=== PATIENT | female | born 1945 | race Caucasian/White ===

== ENCOUNTER 2017-02-25 16:39 | Emergency (ER) | payer MEDICARE ==
[~2017-02-25] VITALS: Ht 165.1 cm; Wt 101.6 kg
[~2017-02-25 16:39] MED LIST: CARV25TA PO; CO Q60CA2 PO; DIAZ10TA PO; DOXA1 PO; LISI-366 PO; METF-324 PO; MOME17I; PRAV10 PO
[2017-02-25 16:42] VITALS: BP 183/84; PULSE 83; RESP 16; TEMP 98.5; O2SAT 96
--- NOTE | 2017-02-25 17:06 | PD ---
HPI Chief Complaint: Hypertension Time Seen by Provider: 16:48 Travel History International Travel<30 days: No Contact w/Intl Traveler<30days: No Traveled to known affect area: No History of Present Illness HPI 71yo F with PMH of HTN and NIDDM presents to the ED with c/o elevated blood pressure. Pt states it was systolic 200 this morning and she called her PMD but they only called back recently and said to call 911. States she has been having intermittent headache for a month and it is frontal and associated with nausea and photophobia. States she had similar headache a few years ago when her blood pressure was high. Denies any fever, neck pain, focal weakness or numbness, chest pain, sob, abdominal pain. PFSH Past Medical History Arthritis: Yes Blood Disorders: No Anxiety: Yes Depression: Yes Heart Rhythm Problems: No Cancer: No Cardiac Catheterization: No Cardiovascular Problems: Yes (HTN) High Cholesterol: No Congestive Heart Failure: Yes Diabetes: Yes Diminished Hearing: No Endocrine: No Gastrointestinal Disorders: Yes ( ACID REFLUX, ) Gout: Yes Genitourinary: No Hepatitis: Yes (HEPATITIS A) Hiatal Hernia: Yes Hypertension: Yes Immune Disorder: No Musculoskeletal: Yes Neurologic: No Psychiatric: Yes Reproductive: No Respiratory: Yes Immunizations Current: Yes Myocardial Infarction: No Ulcer: Yes (STOMACH, ESOPHAGEAL) ?: Not Menopausal: Yes : 1 Para: 1 Past Surgical History Abdominal Surgery: Yes Coronary Artery Bypass Graft: No Gynecologic Surgery: Yes (prolapse uterus) Hysterectomy: Yes Joint Replacement: Yes (BILAT KNEE ARTHROPLASTY) Pacemaker: No Tonsillectomy: Yes Other Surgery: Yes ( BREAST REDUCTION) Social History Alcohol Use: No Tobacco Use: No (QUIT 1983 smoked a ppd) Substance Use: No Allergies-Medications (Allergen,Severity, Reaction): Coded Allergies: Pneumococcal Vaccine (Verified Allergy, Severe, Dizziness, 02/25/17) Reported Meds & Prescriptions Reported Meds & Active Scripts Active Reported Hydrocodone-Acetaminophen 7.5-325 mg Tab 1 Tab PO Q6H PRN Diazepam 10 Mg Tab 10 Mg PO BID PRN Clobetasol Emollient Topical 0.05% Cream 1 Appl TOPICAL DIRECTED Pravastatin 40 Mg Tab 40 Mg PO DAILY Glimepiride 2 Mg Tab 2 Mg PO DAILY Take with breakfast or first main meal Metformin (Metformin HCl) 1,000 Mg Tab 1,000 Mg PO BIDPC With meals Carvedilol 25 Mg Tab 25 Mg PO BID Doxazosin (Doxazosin Mesylate) 8 Mg Tab 8 Mg PO DAILY Review of Systems Except as stated in HPI: all other systems reviewed are Neg Physical Exam Narrative GENERAL: 71yo F in mild distress. SKIN: +Psoriasis in lower extremity. HEAD: Atraumatic. Normocephalic. EYES: Pupils equal and round at 3mm bilaterally. EOMI. No scleral icterus. No injection or drainage. ENT: No nasal bleeding or discharge. Mucous membranes pink and moist. NECK: Trachea midline. No JVD. No nuchal rigidity. CARDIOVASCULAR: Regular rate and rhythm. No murmur appreciated. RESPIRATORY: No accessory muscle use. Clear to auscultation. Breath sounds equal bilaterally. GASTROINTESTINAL: Abdomen soft, non-tender, nondistended. No rebound tenderness or guarding. MUSCULOSKELETAL: No obvious deformities. No clubbing. No cyanosis. No edema. NEUROLOGICAL: Awake and alert. No obvious cranial nerve deficits. Motor grossly within normal limits. Normal speech. PSYCHIATRIC: Appropriate mood and affect; insight and judgment normal. Data Data Last Documented VS Vital Signs Date Time Temp Pulse Resp B/P Pulse Ox O2 Delivery O2 Flow Rate FiO2 02/25/17 17:32 82 18 172/70 95 Room Air 02/25/17 16:42 98.5 Orders Electrocardiogram (02/25/17 ) Complete Blood Count With Diff (02/25/17 16:59) Basic Metabolic Panel (Bmp) (02/25/17 16:59) Prothrombin Time / Inr (Pt) (02/25/17 16:59) Act Partial Throm Time (Ptt) (02/25/17 16:59) Ct Brain W/O Iv Contrast(Rout) (02/25/17 ) Hydralazine Inj (Apresoline Inj) (02/25/17 17:15) Acetaminophen (Tylenol) (02/25/17 17:45) Ketorolac Inj (Toradol Inj) (02/25/17 18:00) Ondansetron Inj (Zofran Inj) (02/25/17 18:00) Labs Laboratory Tests Test 02/25/17 17:18 White Blood Count 7.9 TH/MM3 Red Blood Count 4.48 MIL/MM3 Hemoglobin 13.0 GM/DL Hematocrit 38.6 % Mean Corpuscular Volume 86.1 FL Mean Corpuscular Hemoglobin 28.9 PG Mean Corpuscular Hemoglobin 33.6 % Concent Red Cell Distribution Width 13.3 % Platelet Count 260 TH/MM3 Mean Platelet Volume 8.6 FL Neutrophils (%) (Auto) 54.8 % Lymphocytes (%) (Auto) 31.5 % Monocytes (%) (Auto) 8.9 % Eosinophils (%) (Auto) 4.2 % Basophils (%) (Auto) 0.6 % Neutrophils # (Auto) 4.4 TH/MM3 Lymphocytes # (Auto) 2.5 TH/MM3 Monocytes # (Auto) 0.7 TH/MM3 Eosinophils # (Auto) 0.3 TH/MM3 Basophils # (Auto) 0.0 TH/MM3 CBC Comment DIFF FINAL Differential Comment Prothrombin Time 10.3 SEC Prothromb Time International 0.9 RATIO Ratio Activated Partial 27.9 SEC Thromboplast Time Sodium Level 139 MEQ/L Potassium Level 3.9 MEQ/L Chloride Level 103 MEQ/L Carbon Dioxide Level 27.2 MEQ/L Anion Gap 9 MEQ/L Blood Urea Nitrogen 11 MG/DL Creatinine 0.93 MG/DL Estimat Glomerular Filtration 60 ML/MIN Rate Random Glucose 126 MG/DL Calcium Level 8.9 MG/DL MDM Medical Decision Making Medical Screen Exam Complete: Yes Emergency Medical Condition: Yes Interpretation(s) EKG: NSR 84bpm. Normal axis. Laboratory Tests Test 02/25/17 17:18 White Blood Count 7.9 TH/MM3 (4.0-11.0) Red Blood Count 4.48 MIL/MM3 (4.00-5.30) Hemoglobin 13.0 GM/DL (11.6-15.3) Hematocrit 38.6 % (35.0-46.0) Mean Corpuscular Volume 86.1 FL (80.0-100.0) Mean Corpuscular Hemoglobin 28.9 PG (27.0-34.0) Mean Corpuscular Hemoglobin 33.6 % Concent (32.0-36.0) Red Cell Distribution Width 13.3 % (11.6-17.2) Platelet Count 260 TH/MM3 (150-450) Mean Platelet Volume 8.6 FL (7.0-11.0) Neutrophils (%) (Auto) 54.8 % (16.0-70.0) Lymphocytes (%) (Auto) 31.5 % (9.0-44.0) Monocytes (%) (Auto) 8.9 % (0.0-8.0) Eosinophils (%) (Auto) 4.2 % (0.0-4.0) Basophils (%) (Auto) 0.6 % (0.0-2.0) Neutrophils # (Auto) 4.4 TH/MM3 (1.8-7.7) Lymphocytes # (Auto) 2.5 TH/MM3 (1.0-4.8) Monocytes # (Auto) 0.7 TH/MM3 (0-0.9) Eosinophils # (Auto) 0.3 TH/MM3 (0-0.4) Basophils # (Auto) 0.0 TH/MM3 (0-0.2) CBC Comment DIFF FINAL Differential Comment Prothrombin Time 10.3 SEC (9.8-11.6) Prothromb Time International 0.9 RATIO Ratio Activated Partial 27.9 SEC Thromboplast Time (24.3-30.1) Sodium Level 139 MEQ/L (136-145) Potassium Level 3.9 MEQ/L (3.5-5.1) Chloride Level 103 MEQ/L (98-107) Carbon Dioxide Level 27.2 MEQ/L (21.0-32.0) Anion Gap 9 MEQ/L (5-15) Blood Urea Nitrogen 11 MG/DL (7-18) Creatinine 0.93 MG/DL (0.50-1.00) Estimat Glomerular Filtration 60 ML/MIN (>89) Rate Random Glucose 126 MG/DL (74-106) Calcium Level 8.9 MG/DL (8.5-10.1) Last Impressions Head CT 02/25/17 0000 Signed Impressions: Service Date/Time: February 17:41 - CONCLUSION: Negative for acute process. Servando Figueroa MD FACR Differential Diagnosis Hypertensive emergency vs. ICH vs. migraine headache Narrative Course 71yo F with DM and HTN here with elevated blood pressure. Pt also has been having intermittent headache that may be associated with her elevated blood pressure. BP was 183/84 initially and repeat was 172/70 so hydralazine was not given. Will do basic labs to check for end organ damage as well as CT brain. CT brain negative. Labs reviewed, normal creatinine. Pt given zofran and toradol and reevaluated at bedside. States headache has resolved and she feels better. Return precautions given. Diagnosis Primary Impression: Elevated blood pressure reading Patient Instructions: General Instructions Departure Forms: Tests/Procedures Additional Instructions: Please follow up with your PMD in 3-7 days. Return to the ED if symptoms worsen. Med/Other Pt SpecificInfo: No Change to Meds Disposition: 01 DISCHARGE HOME Condition: Stable Patience Dunaway DO Feb 25, 2017 17:06
[2017-02-25] MEDS: hydrALAZINE HCL 20 MG/ML VIAL IV PUSH ONE ×2 (17:15→17:25)
[2017-02-25 17:28] LABS: AUTOMATED NEUTROPHIL # 4.4 TH/MM3 (1.8-7.7); BASOPHIL % 0.6 % (0.0-2.0); EOSINOPHIL # 0.3 TH/MM3 (0-0.4); EOSINOPHIL % 4.2 % (0.0-4.0); HEMATOCRIT 38.6 % (35.0-46.0); HEMO FLAGS DIFF FINAL; LYMPH % 31.5 % (9.0-44.0); LYMPHOCYTE # 2.5 TH/MM3 (1.0-4.8); MEAN CELL VOLUME 86.1 FL (80.0-100.0); MEAN CORPUSCULAR HEMOGLOBIN 28.9 PG (27.0-34.0); MEAN CORPUSCULAR HGB CONC 33.6 % (32.0-36.0); MONO % 8.9 % (0.0-8.0); NEUT % 54.8 % (16.0-70.0); PLATELET COUNT 260 TH/MM3 (150-450); RED BLOOD COUNT 4.48 MIL/MM3 (4.00-5.30); RED CELL DISTRIBUTION WIDTH 13.3 % (11.6-17.2); WHITE BLOOD COUNT 7.9 TH/MM3 (4.0-11.0)
[2017-02-25 17:32] VITALS: BP 172/70; PULSE 82; RESP 18; O2SAT 95
[2017-02-25 17:37] LABS: POTASSIUM 3.9 MEQ/L (3.5-5.1)
[2017-02-25 17:40] LABS: BICARBONATE 27.2 MEQ/L (21.0-32.0)
[2017-02-25 17:42] LABS: APTT (PATIENT) 27.9 SEC (24.3-30.1); INTERNATIONAL NORMALIZED RATIO 0.9 RATIO; PROTHROMBIN TIME - PATIENT 10.3 SEC (9.8-11.6)
[2017-02-25] MEDS ORDERED: ACETAMINOPHEN 325 MG TAB PO ONE (17:45)
--- NOTE | 2017-02-25 17:50 | RADRPT ---
EXAM DATE/TIME: 02/25/2017 17:41 [facility] COMPARISON: No previous studies available for comparison. INDICATIONS : Cephalgia. RADIATION DOSE: 59.55 CTDIvol (mGy) MEDICAL HISTORY : Hepatitis A. Congestive heart failure. Diabetes mellitus type 2.Hypertension. SURGICAL HISTORY : Hysterectomy. ENCOUNTER: Initial ACUITY: 2 days PAIN SCALE: 10/10 LOCATION: cranial TECHNIQUE: Multiple contiguous axial images were obtained of the head. Using automated exposure control and adj ustment of the mA and/or kV according to patient size, radiation dose was kept as low as reasonably a chievable to obtain optimal diagnostic quality images. DICOM format image data is available electro nically for review and comparison. FINDINGS: CEREBRUM: The ventricles are normal for age. No evidence of midline shift, mass lesion, hemorrhage or acute in farction. No extra-axial fluid collections are seen. POSTERIOR FOSSA: The cerebellum and brainstem are intact. The 4th ventricle is midline. The cerebellopontine angle i s unremarkable. EXTRACRANIAL: The visualized portion of the orbits is intact. SKULL: The calvaria is intact. No evidence of skull fracture. CONCLUSION: Negative for acute process. Servando Figueroa MD FACR on February 25, 2017 at 17:49 Board Certified Radiologist. This report was verified electronically.
[2017-02-25] MEDS ORDERED: ONDANSETRON HCL 4 MG/2 ML VIAL IV PUSH ONE (18:00)
[2017-02-25] MEDS ORDERED: KETOROLAC TROMETHAMINE 30 MG/ML (IVP) VIAL IV PUSH ONE (18:00)
[2017-02-25] MEDS ORDERED: CLOB0.0513 TOPICAL (18:24)
[2017-02-25] MEDS ORDERED: PRAV40TA2 PO (18:24)
[2017-02-25] MEDS ORDERED: CARV25TA PO (18:24)
[2017-02-25] MEDS ORDERED: DIAZ10TA PO (18:24)
[2017-02-25] MEDS ORDERED: HYDR-3580 PO (18:24)
[2017-02-25] MEDS ORDERED: METF1000 PO (18:24)
[2017-02-25] MEDS ORDERED: GLIM2TAB PO (18:24)
[2017-02-25] MEDS ORDERED: DOXA1TAB43 PO (18:24)
[2017-02-25 19:04] VITALS: BP 190/71
--- NOTE | 2017-02-26 15:36 | EKG ---
Date Performed: 02/25/2017 Time Performed: 17:08:26 PTAGE: 71 years EKG: Sinus rhythm NONSPECIFIC T-WAVE ABNORMALITY Compared to prior tracing no significant change BORDERLINE ECG SABRINA James: DATA QUALITY MAY AFFECT INTERPRETATION PREVIOUS TRACING : 08/04/2013 09.01 DOCTOR: Bertrand Booker Interpretating Date/Time 02/26/2017 15:36:17
== END 2017-02-25 19:06 | disposition home or self-care (01) ==
LOC: PHED 16:39
DX: R51 Headache (principal); I11.0 Hypertensive heart disease with heart failure; K21.9 Gastro-esophageal reflux disease without esophagitis; M10.9 Gout, unspecified; B15.9 Hepatitis A without hepatic coma; E11.9 Type 2 diabetes mellitus without complications; Z96.653 Presence of artificial knee joint, bilateral
CPT/HCPCS: 70450; 80048; 85025; 85610; 85730; 93005; 96374; 96375; 99285; J1885; J2405; J0360

== ENCOUNTER → 2017-08-23 | Outpatient (CLI) | payer MEDICARE ==
[~2017-08-23] MED LIST changes: +CLOB0.0513 TOPICAL; -CO Q60CA2 PO; -DOXA1 PO; +DOXA1TAB43 PO; +GLIM2TAB PO; +HYDR-3580 PO; -LISI-366 PO; -METF-324 PO; +METF1000 PO; -MOME17I; -PRAV10 PO; +PRAV40TA2 PO
[2017-08-23 09:58] LABS: AUTOMATED NEUTROPHIL # 3.8 TH/MM3 (1.8-7.7); BASOPHIL # 0.1 TH/MM3 (0-0.2); BASOPHIL % 0.9 % (0.0-2.0); EOSINOPHIL # 0.3 TH/MM3 (0-0.4); EOSINOPHIL % 4.4 % (0.0-4.0); HEMATOCRIT 37.7 % (35.0-46.0); LYMPH % 28.2 % (9.0-44.0); LYMPHOCYTE # 1.9 TH/MM3 (1.0-4.8); MEAN CELL VOLUME 85.8 FL (80.0-100.0); MEAN CORPUSCULAR HEMOGLOBIN 29.6 PG (27.0-34.0); MEAN CORPUSCULAR HGB CONC 34.5 % (32.0-36.0); MEAN PLATELET VOLUME 8.2 FL (7.0-11.0); MONO % 9.4 % (0.0-8.0); MONOCYTE # 0.6 TH/MM3 (0-0.9); NEUT % 57.1 % (16.0-70.0); PLATELET COUNT 273 TH/MM3 (150-450); RED BLOOD COUNT 4.39 MIL/MM3 (4.00-5.30); RED CELL DISTRIBUTION WIDTH 13.4 % (11.6-17.2); WHITE BLOOD COUNT 6.6 TH/MM3 (4.0-11.0)
[2017-08-23 10:21] LABS: ALBUMIN 3.9 GM/DL (3.4-5.0); ALT (GPT) 31 U/L (10-53); AST (GOT) 25 U/L (15-37); BICARBONATE 29.1 MEQ/L (21.0-32.0); BLOOD UREA NITROGEN 15 MG/DL (7-18); CALCIUM 8.9 MG/DL (8.5-10.1); CHLORIDE 103 MEQ/L (98-107); CHOLESTEROL 155 MG/DL (120-200); CREATININE 0.64 MG/DL (0.50-1.00); GLOMERULAR FILTRATION RATE 92 ML/MIN (>89); GLUCOSE,FASTING 141 MG/DL (74-99); SODIUM (NA) 138 MEQ/L (136-145); TRIGLYCERIDES 213 MG/DL (42-150)
[2017-08-23 10:29] LABS: ALKALINE PHOSPHATASE 95 U/L (45-117); CHOLESTEROL/ HDL RATIO 3.68 RATIO; FREE T4 1.16 NG/DL (0.76-1.46); HDL CHOLESTEROL 42.1 MG/DL (40.0-60.0); LDL CHOLESTEROL 70 MG/DL (0-99); TOTAL BILIRUBIN ADULT 0.5 MG/DL (0.2-1.0); TOTAL PROTEIN 7.1 GM/DL (6.4-8.2)
[2017-08-23 13:31] LABS: BILIRUBIN, URINE NEG (NEG); BLOOD, URINE NEG (NEG); GLUCOSE,URINE NEG (NEG); KETONE, URINE NEG (NEG); MUCUS URINE FEW /lpf (OCC); NITRITE,URINE NEG (NEG); PH, URINE 6.5 (5.0-8.5); SQUAMOUS EPITHELIAL CELL URINE <1 /hpf (0-5); URINE COLOR YELLOW (YELLW/STRAW); URINE LEUKOCYTE ESTERASE TRACE (NEG)
[2017-08-23 16:19] LABS: HEMOGLOBIN A1C 7.6 % (4.3-6.0)
== END ==
LOC: PLAB 08:07
PROVIDERS: ATTEND Family Medicine
DX: E11.9 Type 2 diabetes mellitus without complications (principal); E78.5 Hyperlipidemia, unspecified
CPT/HCPCS: 36415; 80053; 80061; 81001; 82043; 83036; 84439; 84443; 85025

== ENCOUNTER 2018-01-09 01:12 | Emergency (ER) | payer MEDICARE ==
[~2018-01-09] VITALS: Ht 165.1 cm; Wt 103.4 kg
[2018-01-09 01:17] VITALS: BP 182/81; PULSE 82; RESP 18; TEMP 97.3; O2SAT 97
[2018-01-09] MEDS ORDERED: PANT40TA3 PO (01:30)
[2018-01-09] MEDS ORDERED: SODIUM CHLORIDE 0.9% FLUSH 10 ML FLUSH IV FLUSH PRN (01:30)
[2018-01-09 01:33] VITALS: O2SAT 97
[2018-01-09 01:48] LABS: BILIRUBIN, URINE NEG (NEG); BLOOD, URINE NEG (NEG); GLUCOSE,URINE NEG (NEG); KETONE, URINE NEG (NEG); NITRITE,URINE NEG (NEG); URINE COLOR YELLOW (YELLW/STRAW); URINE LEUKOCYTE ESTERASE SMALL (NEG)
[2018-01-09 01:53] LABS: RBC, URINE 0-2 /hpf (0-3); SQUAMOUS EPITHELIAL CELL URINE 0-5 /hpf (0-5)
[2018-01-09 02:20] LABS: AUTOMATED NEUTROPHIL # 4.1 TH/MM3 (1.8-7.7); BASOPHIL % 0.4 % (0.0-2.0); EOSINOPHIL # 0.4 TH/MM3 (0-0.4); EOSINOPHIL % 5.8 % (0.0-4.0); HEMATOCRIT 39.5 % (35.0-46.0); HEMOGLOBIN 13.1 GM/DL (11.6-15.3); LYMPH % 32.8 % (9.0-44.0); LYMPHOCYTE # 2.5 TH/MM3 (1.0-4.8); MEAN CELL VOLUME 88.4 FL (80.0-100.0); MEAN CORPUSCULAR HEMOGLOBIN 29.3 PG (27.0-34.0); MEAN CORPUSCULAR HGB CONC 33.1 % (32.0-36.0); MEAN PLATELET VOLUME 8.5 FL (7.0-11.0); MONO % 7.2 % (0.0-8.0); MONOCYTE # 0.5 TH/MM3 (0-0.9); NEUT % 53.8 % (16.0-70.0); PLATELET COUNT 265 TH/MM3 (150-450); RED BLOOD COUNT 4.47 MIL/MM3 (4.00-5.30); RED CELL DISTRIBUTION WIDTH 12.8 % (11.6-17.2); WHITE BLOOD COUNT 7.5 TH/MM3 (4.0-11.0)
--- NOTE | 2018-01-09 02:23 | PD ---
HPI . Abdominal pain Chief Complaint: Abdominal Pain Time Seen by Provider: 01:24 Travel History International Travel<30 days: No Contact w/Intl Traveler<30days: No Traveled to known affect area: No History of Present Illness HPI Patient presents complaining with abdominal pain. Onset was 2 years ago. It has been worse for the past 2 hours. She complains of generalized abdominal pain which she describes as burning and rates 8/10. The burning sensation has been unrelieved by an antacid. She does not have any associated symptoms such as nausea, vomiting, diarrhea, urinary tract symptoms or fever. PFSH Past Medical History Arthritis: Yes Blood Disorders: No Anxiety: Yes Depression: Yes Heart Rhythm Problems: No Cancer: No Cardiac Catheterization: No Cardiovascular Problems: Yes (HTN) High Cholesterol: No Congestive Heart Failure: Yes Diabetes: Yes Patient Takes Glucophage: Yes Diminished Hearing: No Endocrine: No Gastrointestinal Disorders: Yes ( ACID REFLUX, ) Gout: Yes Genitourinary: No Hepatitis: Yes (HEPATITIS A) Hiatal Hernia: Yes Heparin Induced Thrombocytopen: No Hypertension: Yes Immune Disorder: No Musculoskeletal: Yes Neurologic: No Psychiatric: Yes Reproductive: No Respiratory: Yes Immunizations Current: Yes Myocardial Infarction: No Ulcer: Yes (STOMACH, ESOPHAGEAL) Tetanus Vaccination: > 5 Years Influenza Vaccination: Yes ?: Not Menopausal: Yes : 1 Para: 1 Past Surgical History Abdominal Surgery: Yes Coronary Artery Bypass Graft: No Gynecologic Surgery: Yes (prolapse uterus) Hysterectomy: Yes Joint Replacement: Yes (BILAT KNEE ARTHROPLASTY) Pacemaker: No Tonsillectomy: Yes Other Surgery: Yes ( BREAST REDUCTION) Family History Family Myocardial Infarction: No Social History Alcohol Use: No Tobacco Use: No (QUIT 1983 smoked a ppd) Substance Use: No Allergies-Medications (Allergen,Severity, Reaction): Coded Allergies: pneumococcal vaccine (Unverified Allergy, Severe, Dizziness, 01/09/18) Reported Meds & Prescriptions Reported Meds & Active Scripts Active Reported Pantoprazole (Pantoprazole Sodium) 40 Mg Tab 40 Mg PO DAILY Hydrocodone-Acetaminophen 7.5-325 mg Tab 1 Tab PO Q6H PRN Diazepam 10 Mg Tab 10 Mg PO BID PRN Clobetasol Emollient Topical 0.05% Cream 1 Appl TOPICAL DIRECTED Pravastatin 40 Mg Tab 40 Mg PO DAILY Glimepiride 2 Mg Tab 2 Mg PO DAILY Take with breakfast or first main meal Metformin (Metformin HCl) 1,000 Mg Tab 1,000 Mg PO BIDPC With meals Carvedilol 25 Mg Tab 25 Mg PO BID Doxazosin (Doxazosin Mesylate) 8 Mg Tab 8 Mg PO DAILY Review of Systems Except as stated in HPI: all other systems reviewed are Neg General / Constitutional: No: Fever, Chills Gastrointestinal: Positive: Abdominal Pain, No: Nausea, Vomiting, Diarrhea Genitourinary: No: Urgency, Frequency, Dysuria Physical Exam Narrative GENERAL: Awake and alert and in no acute distress. SKIN: warm/dry. HEAD: Normocephalic. Atraumatic. EYES: Pupils equal and round. Extraocular movements are intact. ENT: Mucous membranes pink and moist. NECK: Supple. Full range of motion without pain.. CARDIOVASCULAR: Regular rate and rhythm. Heart sounds are normal. RESPIRATORY: No accessory muscle use. Clear to auscultation. Breath sounds equal bilaterally. GASTROINTESTINAL: Abdomen soft. Nontender. Bowel sounds present. Nondistended. MUSCULOSKELETAL: No obvious deformities. Normal muscle tone. NEUROLOGICAL: Awake and alert. No obvious cranial nerve deficits. Motor grossly within normal limits. Normal speech. PSYCHIATRIC: Appropriate mood and affect; insight and judgment normal. Data Data Last Documented VS Vital Signs Date Time Temp Pulse Resp B/P (MAP) Pulse Ox O2 Delivery O2 Flow Rate FiO2 01/09/18 01:33 97 01/09/18 01:17 97.3 82 18 Orders Orders Complete Blood Count With Diff (01/09/18 01:26) Comprehensive Metabolic Panel (01/09/18 01:26) Lipase (01/09/18 01:26) Urinalysis - C+S If Indicated (01/09/18 01:26) Iv Access Insert/Monitor (01/09/18 01:26) Ecg Monitoring (01/09/18 01:26) Oximetry (01/09/18 01:26) Sodium Chloride 0.9% Flush (Ns Flush) (01/09/18 01:30) Dicyclomine Inj (Bentyl Inj) (01/09/18 02:45) Labs Laboratory Tests Test 01/09/18 01:35 01/09/18 02:10 Urine Color YELLOW Urine Turbidity CLEAR Urine pH 6.0 Urine Specific [place] 1.010 Urine Protein NEG mg/dL Urine Glucose (UA) NEG mg/dL Urine Ketones NEG mg/dL Urine Occult Blood NEG Urine Nitrite NEG Urine Bilirubin NEG Urine Urobilinogen 0.2 MG/DL Urine Leukocyte Esterase SMALL Urine RBC 0-2 /hpf Urine WBC 3-5 /hpf Urine Squamous Epithelial Cells 0-5 /hpf Urine Bacteria NONE /hpf Microscopic Urinalysis Comment CULT NOT INDICATED White Blood Count 7.5 TH/MM3 Red Blood Count 4.47 MIL/MM3 Hemoglobin 13.1 GM/DL Hematocrit 39.5 % Mean Corpuscular Volume 88.4 FL Mean Corpuscular Hemoglobin 29.3 PG Mean Corpuscular Hemoglobin Concent 33.1 % Red Cell Distribution Width 12.8 % Platelet Count 265 TH/MM3 Mean Platelet Volume 8.5 FL Neutrophils (%) (Auto) 53.8 % Lymphocytes (%) (Auto) 32.8 % Monocytes (%) (Auto) 7.2 % Eosinophils (%) (Auto) 5.8 % Basophils (%) (Auto) 0.4 % Neutrophils # (Auto) 4.1 TH/MM3 Lymphocytes # (Auto) 2.5 TH/MM3 Monocytes # (Auto) 0.5 TH/MM3 Eosinophils # (Auto) 0.4 TH/MM3 Basophils # (Auto) 0.0 TH/MM3 CBC Comment DIFF FINAL Differential Comment Blood Urea Nitrogen 9 MG/DL Creatinine 0.55 MG/DL Random Glucose 199 MG/DL Total Protein 7.2 GM/DL Albumin 3.6 GM/DL Calcium Level 8.9 MG/DL Alkaline Phosphatase 108 U/L Aspartate Amino Transf (AST/SGOT) 18 U/L Alanine Aminotransferase (ALT/SGPT) 29 U/L Total Bilirubin 0.4 MG/DL Sodium Level 139 MEQ/L Potassium Level 3.9 MEQ/L Chloride Level 105 MEQ/L Carbon Dioxide Level 24.9 MEQ/L Anion Gap 9 MEQ/L Estimat Glomerular Filtration Rate 109 ML/MIN Lipase 73 U/L [facility] Medical Decision Making Medical Screen Exam Complete: Yes Emergency Medical Condition: Yes Differential Diagnosis Differential diagnosis of abdominal pain includes but is not limited to gastritis, pancreatitis, hepatitis, gastroenteritis, constipation, urinary retention, peptic ulcer disease, diverticulitis or appendicitis Narrative Course This patient presents with a chief complaint of abdominal pain. Onset was 2 years ago. It has been worse for the last couple of hours. An abdominal pain workup is in process. Her abdominal exam is benign. CBC & BMP Diagram 01/09/18 02:10 Total Protein 7.2, Albumin 3.6, Calcium Level 8.9, Alkaline Phosphatase 108, Aspartate Amino Transf (AST/SGOT) 18, Alanine Aminotransferase (ALT/SGPT) 29, Total Bilirubin 0.4, Lipase 73 UA neg Patient reports that she has been on Protonix for 2 years and that it does not help. I will give her prescription for Carafate. She should follow-up with her doctor for ongoing evaluation and treatment of this chronic problem. Diagnosis Primary Impression: Abdominal pain Qualified Codes: R10.84 - Generalized abdominal pain Patient Instructions: Abdominal Pain (ED), General Instructions Med/Other Pt SpecificInfo: Prescription(s) given Scripts Sucralfate (Carafate) 1 Gram Tab 1 GM PO QID for Ulcer Prevention, #120 TAB 0 Refills On empty stomach Prov: Neris Montejo MD 01/09/18 Disposition: 01 DISCHARGE HOME Condition: Stable Neris Montejo MD Jan 09, 2018 02:23
[2018-01-09 02:26] LABS: CHLORIDE 105 MEQ/L (98-107); SODIUM (NA) 139 MEQ/L (136-145)
[2018-01-09 02:30] LABS: ALBUMIN 3.6 GM/DL (3.4-5.0); BICARBONATE 24.9 MEQ/L (21.0-32.0); BLOOD UREA NITROGEN 9 MG/DL (7-18); CALCIUM 8.9 MG/DL (8.5-10.1); GLUCOSE,RANDOM 199 MG/DL (74-106)
[2018-01-09 02:33] LABS: ALT (GPT) 29 U/L (10-53); AST (GOT) 18 U/L (15-37); CREATININE 0.55 MG/DL (0.50-1.00); GLOMERULAR FILTRATION RATE 109 ML/MIN (>89)
[2018-01-09 02:35] LABS: TOTAL BILIRUBIN ADULT 0.4 MG/DL (0.2-1.0); TOTAL PROTEIN 7.2 GM/DL (6.4-8.2)
[2018-01-09 02:36] LABS: ALKALINE PHOSPHATASE 108 U/L (45-117)
[2018-01-09] MEDS ORDERED: DICYCLOMINE HCL 20 MG/2 ML VIAL IM ONE (02:45)
[2018-01-09] MEDS ORDERED: CARA1TAB6 PO (02:47)
[2018-01-09 03:01] VITALS: BP 176/84; PULSE 84; RESP 18; O2SAT 97
== END 2018-01-09 03:02 | disposition home or self-care (01) ==
LOC: PHED 01:12
DX: R10.84 Generalized abdominal pain (principal); E11.9 Type 2 diabetes mellitus without complications; F32.9 Major depressive disorder, single episode, unspecified; F41.9 Anxiety disorder, unspecified; I11.0 Hypertensive heart disease with heart failure; I50.9 Heart failure, unspecified; K21.9 Gastro-esophageal reflux disease without esophagitis; Z79.84 Long term (current) use of oral hypoglycemic drugs
CPT/HCPCS: 80053; 81001; 83690; 85025; 96372; 99283; J0500